=== PATIENT | female | born 1985 | race Caucasian/White ===

== ENCOUNTER 2022-11-29 15:50 | Emergency (ER) | payer SELFPAY ==
--- NOTE | ~2022-11-29 | CT_ITS ---
EXAMINATION: CT abdomen pelvis wo con DATE: 11/29/2022 18:31 INDICATION: concern for ureteral stone TECHNIQUE: Computed tomography (CT) of the abdomen and pelvis was performed without intravenous contr ast. Automated exposure control and iterative reconstruction technique were employed. The dose-length product was 1137.28 mGy-cm. COMPARISON: None. FINDINGS: Lower thorax: Minimal dependent atelectasis. Liver: Normal. Biliary/Gallbladder: Filled by hyperdense material, which may represent spurious contrast excretion o r sludge, multiple gallstones are present. No dilation or inflammatory change. No bile duct dilation. Pancreas: No mass or duct dilation. Spleen: Normal. Adrenals:No mass. Kidneys: Simple left midpole cyst. No suspicious mass, stone, or hydronephrosis. GI tract: No small or large bowel dilation. Normal appendix. Mesentery/Peritoneum: No ascites, mass, or free air. Retroperitoneum: No mass. Pelvis: Pelvic organs are within normal limits. Soft Tissues: Soft tissues and body wall unremarkable. Bones: No acute osseous finding. IMPRESSION: No acute abdominopelvic process detected. Reviewed, dictated and finalized at location K.
[2022-11-29 15:54] VITALS: BP 143/74; PULSE 86; RESP 16; TEMP 36.7; O2SAT 100
[2022-11-29 16:27] LABS: Appearance Urine Cloudy (Clear); Bacteria Urine 4+ /hpf; Bilirubin Urine 1+ (Negative); Blood Urine 2+ (Negative); Color Urine Dark Yellow (Yellow); Glucose Urine UA Negative (Negative); Ketones Urine Trace mg/dL (Negative); Leukocyte Esterase Ur 1+ LEU/UL (Negative); Nitrate Urine Negative (Negative); Non Pathogenic Casts 0-2; Protein Urine Negative (Negative); Specific Grav Ur 1.025 (1.001-1.035); Squamous Epithelial Cell Urine Moderate /hpf (Few)
[2022-11-29 16:32] LABS: Add Urine Microscopic? YES
--- NOTE | 2022-11-29 18:23 | ED.FEMALEGU ---
HPI - Female Genitourinary General Chief complaint: Urogenital-Female <Rain Reyes PA-C - Last Filed: 11/29/22 20:10> Stated complaint: BACK PAIN, HX UTI <Rain Reyes PA-C - Last Filed: 11/29/22 20:10> Time Seen by Provider: 11/29/22 17:08 <Rain Reyes PA-C - Last Filed: 11/29/22 20:10> History of Present Illness HPI Narrative: 36-year-old female reports for evaluation of right lower back pain for 1 week. Patient was diagnosed with a UTI [facility] 7 days ago, she was started on Macrobid without improvement. Her last dose is scheduled for tomorrow. Patient states her low back pain has persisted, worse with standing. She denies urinary symptoms including urinary frequency or urgency, dysuria or gross hematuria. She denies injury to her back, abdominal pain, paresthesias to her lower extremities, saddle anesthesia, difficulty walking, lower extremity weakness, urinary or bowel incontinence or retention. She does report a history of ureteral stones. She reports that this pain is constant and does not feel like her previous stone. She does report 1 episode of emesis yesterday while she had a migraine. States her headache has since resolved and she has not had any other episodes of emesis. Denies fever, body aches or chills, chest pain or shortness of breath, diarrhea. <Rain Reyes PA-C - Last Filed: 11/29/22 20:10> Related Data Allergies/Adverse reactions: Allergies Allergy/AdvReac Type Severity Reaction Status Date / Time No Known Allergies Allergy Verified 11/29/22 18:43 <Rain Reyes PA-C - Last Filed: 11/29/22 20:10> Review of Systems Review of Systems: CONSTITUTIONAL: Denies fever, chills EYES: Denies visual changes, redness, or discharge. ENT: Denies rhinorrhea, congestion, sore throat, or otalgia. CARDIOVASCULAR: Denies chest pain, palpitations, or edema. RESPIRATORY: Denies cough or dyspnea. GASTROINTESTINAL: See HPI GENITOURINARY: See HPI SKIN: Denies rash or itching. MUSCULOSKELETAL: See HPI NEUROLOGIC: Denies headache, numbness, dizziness, or weakness. PSYCHIATRIC: Denies anxiety or depression. <Rain Reyes PA-C - Last Filed: 11/29/22 20:10> Exam Narrative: GENERAL: Well-appearing, in no acute distress. Patient resting comfortably in exam bed. She is pleasant and conversational. HEAD: Normocephalic EYES: PERRLA ENT: Nares clear. Mucous membranes moist. Oropharynx without tonsillar hypertrophy exudate or other lesions. NECK: Supple. CHEST: No respiratory distress. Clear to auscultation, no adventitious breath sounds. HEART: Regular rate and rhythm. No murmur heard. Normal peripheral pulses. ABDOMEN: Soft, nontender, normal active bowel sounds. No CVA tenderness bilaterally. No tenderness to palpation of lower back. EXTREMITIES: Normal range of motion. No edema. SKIN: Warm, dry, no rash. NEURO: No focal deficits. Alert and oriented x3. Strength 5/5 in BLE. Sensation intact throughout. No saddle anesthesia. Ambulatory w/o difficulty. PSYCH: Normal mood and affect. <Rain Reyes PA-C - Last Filed: 11/29/22 20:10> Course HEAD [employer]TER T[employer]ENDER/PA Physician Supervision I agree with midlevel documentation; I performed the medical decision making component of this evaluation. <Dagmar Saenz MD - Last Filed: 11/30/22 04:37> Vital Signs Vital signs: Vital Signs Temperature 98.1 F 11/29/22 15:54 Pulse Rate 86 11/29/22 15:54 Respiratory Rate 16 11/29/22 15:54 Blood Pressure 143/74 H 11/29/22 15:54 Pulse Oximetry 100 11/29/22 15:54 Temperature 98.1 F 11/29/22 15:54 Pulse Rate 86 11/29/22 15:54 Respiratory Rate 16 11/29/22 15:54 Blood Pressure 143/74 H 11/29/22 15:54 Pulse Oximetry 100 11/29/22 15:54 <Rain Reyes PA-C - Last Filed: 11/29/22 20:10> Vital Signs Temperature 98.1 F 11/29/22 15:54 Pulse Rate 86 11/29/22 15:54 Respiratory Rate 16 11/29/22 15:54 Blood
[2022-11-29] MEDS: SODIUM CHLORIDE 0.9% IV 1,000 ML 999 ML IV CONT (18:44)
[2022-11-29 18:51] LABS: Basophils Percent Auto 0.3 % (0.2-1.2); Eosinophils Absolute Auto 0.1 K/mm3 (0-0.3); Eosinophils Percent Auto 0.7 % (0-4.4); Hematocrit 39.1 % (37.0-47.0); Hemoglobin 12.8 g/dL (12.0-15.0); Immature Granulocyte Absolute 0.04 K/mm3 (0.00-0.031); Immature Granulocyte Percent A 0.3 % (0-0.5); Lymphocytes Absolute Auto 3.69 K/mm3 (0.9-3.2); Lymphocytes Percent Auto 30.6 % (18.3-44.2); Mean Corpuscular HGB Conc 32.7 g/dl (32-36); Mean Corpuscular Hemoglobin 28.7 pg (26-34); Mean Corpuscular Volume 87.7 fl (80-100); Mean Platelet Volume 9.7 fl (7.4-10.4); Monocytes Absolute Auto 0.8 K/mm3 (0.1-0.6); Monocytes Percent Auto 6.9 % (2.6-8.5); Neutrophils Absolute Auto 7.4 K/mm3 (1.3-6.7); Neutrophils Percent Auto 61.2 % (45.5-73.1); Platelet Count Result 269 k/mm3 (150-375); Red Blood Count 4.46 M/mm3 (4.2-5.4); Red Cell Distribution Width 13.3 % (11.5-14.5); White Blood Count 12.1 K/mm3 (4.5-10.0)
[2022-11-29 19:08] LABS: Alanine Aminotransferase 17 U/L (6-35); Albumin Level 4.1 g/dL (3.5-5.1); Alkaline Phosphatase 72 U/L (38-126); Anion Gap 8 mmol/L (8-16); Aspartate Amino Transferase 17 U/L (14-36); Bilirubin,Total 0.2 mg/dL (0.2-1.3); Blood Urea Nitrogen 13 mg/dL (7-17); Calcium 8.7 mg/dL (8.4-10.2); Carbon Dioxide 23 mmol/L (22-30); Chloride 109 mmol/L (98-107); Estimated CRCL calculation 115 ml/min; Estimated Glomerular Filt Rate > 60; Glucose 93 mg/dL (65-110); Potassium 3.6 mmol/L (3.4-5.0); Sodium 140 mmol/L (137-145)
--- NOTE | 2022-11-29 19:31 | PC.NURSE ---
This RN assumed care of patient.
[2022-11-29] MEDS: KETOROLAC 30 MG/ML VIAL (*BKC) IV PUSH (19:52)
== END 2022-11-29 20:04 | disposition home or self-care (01) ==
PROVIDERS: Emergency Medicine; Emergency Provider Physician Assistant
DX: N39.0 Urinary tract infection, site not specified (principal)
CPT/HCPCS: 36415; 74176; 80053; 81001; 81025; 85025; 87086; 96365; 96375; 99284; J0696; J1885; J7030